=== PATIENT | female | born 1985 | race Caucasian/White ===

== ENCOUNTER 2017-04-08 16:11 | Emergency (ER) | payer MEDICAID ==
[~2017-04-08] VITALS: Ht 157.5 cm; Wt 56.7 kg
[2017-04-08 16:23] VITALS: BP 124/62
--- NOTE | 2017-04-08 16:28 | NUR ---
EKG WITH NSR SIGNED BY DR LINARES
--- NOTE | 2017-04-08 16:30 | NUR ---
PT BIB FRIEND WITH C/O CHEST PAIN WITH SORE THROAT HARD TO SWALLOW SINCE LAST NIGHT HX; DENIES, JUST HAD A BABY 5 WEEKS AGO RX; DENIESPATIENT DENIES N/V/D; SKIN IS PINK/WARM/DRY; AAOX4 WITH EVEN AND STEADY GAIT; LUNGS CLEAR BL; HR EVEN AND REGULAR; PT DENIES ANY FEVER, SOB, OR COUGH AT THIS TIME; PATIENT STATES PAIN OF 10/10 AT THIS TIME; VSS; PATIENT POSITIONED FOR COMFORT; HOB ELEVATED; BEDRAILS UP X2; BED DOWN. ER MD MADE AWARE OF PT STATUS.
[2017-04-08] MEDS ORDERED: LORazepam 1 MG TAB PO ONE (16:45)
[2017-04-08] MEDS ORDERED: ASPIRIN 325 MG TAB PO ONE (16:45)
--- NOTE | 2017-04-08 17:39 | NUR ---
DENIES PAIN AT THIS TIME. STILL IN OF. NO BED AVAIL.
[2017-04-08 18:25] LABS: BASOPHILS # (AUTO) 0.1 K/uL (0.00-0.22); BASOPHILS % (AUTO) 0.8 % (0.0-2.0); EOSINOPHILS # (AUTO) 0.2 K/uL (0-0.4); EOSINOPHILS % (AUTO) 1.2 % (0.0-4.0); HEMATOCRIT 45.5 % (36-48); HEMOGLOBIN 14.4 g/dL (12.0-16.0); LYMPHOCYTES # (AUTO) 1.7 K/uL (2.5-16.5); LYMPHOCYTES % (AUTO) 13.2 % (20.5-51.1); MEAN CORPUSCULAR HEMOGLOBIN 29 pg (27-31); MEAN CORPUSCULAR HGB CONC 32 g/dL (33-37); MEAN CORPUSCULAR VOLUME 91 fL (80-94); MONOCYTES # (AUTO) 0.6 K/uL (0.8-1.0); NEUTROPHILS % (AUTO) 79.8 % (42.2-75.2); PLATELET COUNT (AUTO) 191 K/uL (140-450); RED BLOOD CELL COUNT(AUTO) 4.99 MIL/uL (4.20-5.40); RED CELL DISTRIBUTION WIDTH 17.7 % (11.6-13.7); WHITE BLOOD COUNT (AUTO) 12.6 K/uL (4.8-10.8)
--- NOTE | 2017-04-08 18:36 | NUR ---
MORE ORDERS FROM ERMD.STILL NO BED AVAIL.
[2017-04-08 18:43] LABS: ANION GAP 12.6 (8-16); CALCIUM 9.3 mg/dL (8.5-10.1); CREATININE 0.7 mg/dL (0.6-1.3); POTASSIUM 3.6 mmol/L (3.5-5.1)
--- NOTE | 2017-04-08 18:43 | NUR ---
PATIENT WHEELCHAIR ASSISTED TO BED 4.
[2017-04-08 18:50] LABS: ALBUMIN 4.1 g/dL (3.4-5.0); TOTAL BILIRUBIN 0.5 mg/dL (0.0-1.0)
--- NOTE | 2017-04-08 18:51 | NUR ---
pt reports multiple episodes of fainting, denies any loc. pt states " i feel weak" denies any drug/etoh use. resp even and unlabored, on monitor-sr. Resp even and unlabored. ER MD in room for eval.
[2017-04-08] MEDS ORDERED: LORazepam 2 MG/ML VIAL IVP ONE (19:10)
[2017-04-08 21:15] VITALS: BP 112/70
== END 2017-04-08 21:15 | disposition home or self-care (01) ==
LOC: MED 16:11
DX: R07.89 Other chest pain (principal)
CPT/HCPCS: 36415; 71010; 80053; 84484; 85025; 99285; J2060; C1758